=== PATIENT | female | born 1960 | race Caucasian/White ===

== ENCOUNTER → 2019-09-10 | Day surgery (SDC) | payer BC, OTHER ==
[2019-09-07 15:55] LABS: BASOPHILS # (AUTO) 0.1 (0.0-0.1); BASOPHILS % 1.5 % (0.0-1.0); EOSINOPHILS # (AUTO) 0.5 (0.0-0.4); EOSINOPHILS % 5.5 % (0.0-6.0); HEMATOCRIT 43.8 % (34.2-44.1); HEMOGLOBIN 13.7 g/dL (12.0-16.0); LYMPHOCYTES # (AUTO) 2.6 (1.0-3.2); LYMPHOCYTES % 32.2 % (18.0-39.1); MEAN CORPUSCULAR HEMOGLOBIN 28.3 pg (28-32); MEAN CORPUSCULAR HGB CONC 31.3 g/dL (31-35); MEAN CORPUSCULAR VOLUME 90.5 fL (81-99); MONOCYTES # (AUTO) 0.5 (0.2-0.8); MONOCYTES % 5.8 % (4.4-11.3); NEUTROPHILS # (AUTO) 4.5 (2.1-6.9); NEUTROPHILS % 54.8 % (38.7-80.0); PLATELET COUNT 291 x10e3/uL (140-360); RED BLOOD COUNT 4.84 x10e6/uL (3.6-5.1); RED CELL DISTRIBUTION WIDTH 12.9 % (11.7-14.4)
[2019-09-07 16:15] LABS: ANION GAP 12.7 mmol/L (8-16); BLOOD UREA NITROGEN 18 mg/dL (7-26); BUN/CREATININE RATIO 20 (6-25); CALCIUM 9.8 mg/dL (8.4-10.2); CARBON DIOXIDE 26 mmol/L (22-29); CHLORIDE 106 mmol/L (98-107); CREATININE, SERUM 0.88 mg/dL (0.57-1.11); EST GLOMERULAR FILTRATION RATE > 60 ML/MIN (60-); GLUCOSE 81 mg/dL (74-118); POTASSIUM 3.7 mmol/L (3.5-5.1); SODIUM 141 mmol/L (136-145)
--- NOTE | 2019-09-08 09:37 | Diagnostic Imaging Report ---
EXAMINATION: CHEST 2 VIEWS INDICATION: Pre-operative COMPARISON: None FINDINGS: LINES/TUBES:None LUNGS:The lungs are well-inflated. No focal consolidation or pulmonary edema. PLEURA:No pleural effusion or pneumothorax. MEDIASTINUM:The cardiomediastinal silhouette appears normal in size and shape. BONES/SOFT TISSUES:No acute osseous injury. ABDOMEN:No free air under the diaphragm. IMPRESSION: No focal pneumonia or pulmonary edema. Signed by: Leah Sargent MD on 09/08/2019 9:26 AM
[~2019-09-10] MED LIST: ACETAMINOPHEN 1000 MG/100 ML IV ONE; ARMOUR THYROID60 MG PO; BUPIVACAINE HCL 0.5% INJ 30 ML VIAL INJ ONE; CEFAZOLIN SOD 1 GM/NS 50ML 100 ML IV ONE; DEXAMETHASONE SOD PHOS INJ 4 MG/ML VIAL ONE; FENTANYL CITRATE/PF 100MCG/2 ML INJ ONE; HYDROMORPHONE 1MG/1ML INJ ONE; KETOROLAC TROMETHAMINE 30 MG/ML VIAL ONE; LIDOCAINE HCL 2% LOCAL INJ 5 ML SDV VIAL INJ ONE; MEPERIDINE HCL INJ 25 MG/ML VIAL ONE; MIDAZOLAM HCL 2 MG/2 ML VIAL ONE; MULTIVITAMINS1 EAC7 PO; NEOSTIGMINE 1 MG/ML 10ML VIAL ONE; ONDANSETRON HCL INJ 2MG/ML 2ML 2 MG/ML VIAL ONE; PROBIOTIC & AC1 EACH PO; PROPOFOL IV EMULSION 10 MG/ML 20 ML VIAL ONE; SEVOFLURANE INHAL SOLN 250 ML PEN BTL ONE
--- OUTSIDE RECORDS SUMMARY | 2019-09-10 08:55 | XMS REPORT | Clinical Summary ---
Author Author [facility] Address Unknown Phone Unavailable Care Team Providers Care Instrumentation Manager Name Role Phone PCP Unavailable Allergies No Known Allergies Medications End Date Status Medication Sig Dispensed Refills Start Date Active pharmacy compounding by 0 accessory Misc Miscellaneous route Biest 50:50 2.5 mg / Testosterone 1mg Apply 1 ml topically every day # 30ml . Active progesterone Take 100 mg 0 capsule/cream by mouth (compounded) nightly. Active thyroid, pork, 60 mg Tab Take 60 mg by 0 mouth daily. Active Problems Problem Noted Date Varicose vein of leg Thyroid disease HNP (herniated nucleus pulposus), lumba r Overview: l-4,l-5 Encounters Care Team Description Date Type Specialty Ami Thao MD Varicose veins of lower extremity, unspe cified laterality, unspecified whether complicated; Thyroid disease; HNP (herniated nucleus pulposus), lumbar 01/05/2019 Abstract Family Medicine after 09/09/2018 Family History Relation Name Status Comments Father Alive Mother Alive Social History Date Tobacco Use Types Packs/Day Years Used Never Smoker Smokeless Tobacco: Never Used Alcohol Use Drinks/Week oz/Week Comments Yes occasionally Sex Assigned at Date Recorded Not on file Industry Job Start Date Occupation Not on file Not on file Not on file Travel End Travel History Travel Start No recent travel history available. Last Filed Vital Signs Not on file Plan of Treatment Not on file Results Not on fileafter 09/09/2018
--- OUTSIDE RECORDS SUMMARY | 2019-09-10 08:55 | XMS REPORT ---
Author Author [facility] Organization [facility] Address [address] [place] [id number] Phone Unavailable Care Team Providers Care Wood Sash And Frame Carpenter Name Role Phone LAURYN NAIK Attphys Unavailable Problems This patient has no known problems. Allergies, Adverse Reactions, Alerts This patient has no known allergies or adverse reactions. Medications This patient has no known medications. Procedures This patient has no known procedures. Results Test Description Test Time Test Comments Results Result Comments Source CHEST 2 VIEWS 2019-09-08 09:26:00 [facility] [address] [place], [place] [address] Patient Name: SALAZAR FARFAN MR #: [id number] : 1960 Age/Sex: 59/F Req #: [id number] Adm Physician: Ordered by: LAURYN NAIK DPM Report #: [id number] Location: OR Room/Bed: Procedure: [id number] DX/CHEST 2 VIEWS Exam Date: 09/07/19 Exam Time: 1538 REPORT STATUS: Signed EXAMINATION: CHEST 2 VIEWS INDICATION: Pre-operative COMPARISON: None FINDINGS: LINES/TUBES:None LUNGS:The lungs are well-inflated. No focal consolidation or pulmonary edema. PLEURA:No pleural effusion or pneumothorax. MEDIAS TINUM:The cardiomediastinal silhouette appears normal in size and shape. BONES/SOFT TISSUES:No acute osseous injury. ABDOMEN:No free air under the diaphragm. IMPRESSION: No focal pneumonia or pulmonary edema. Signed by: Jen Stringer MD on 09/08/2019 9:26 AM Dictated By: JEN STRINGER MD 5 Transcribed By: SADAF on 09/08/19925 COPY TO: LAURYN NAIK DPM
[2019-09-10 14:50] VITALS: BP 130/84
--- NOTE | 2019-09-23 14:46 | Operative Report ---
DATE OF PROCEDURE: 09/10/2019 SURGEON: Mehul Soliz DPM ROOM NUMBER: [facility]. PREOPERATIVE DIAGNOSES: 1. Hallux abductovalgus deformity of the right foot. 2. Rigidly contracted hammertoe, 2nd and 3rd digits of the right foot. 3. Dislocation and plantar flexion, 2nd metatarsal at the metatarsophalangeal joint, right foot. 4. Plantar flexed 2nd metatarsal, right foot. POSTOPERATIVE DIAGNOSES: 1. Hallux abductovalgus deformity of the right foot. 2. Rigidly contracted hammertoe, 2nd and 3rd digits of the right foot. 3. Dislocation and plantar flexion, 2nd metatarsal at the metatarsophalangeal joint, right foot. 4. Plantar flexed 2nd metatarsal, right foot. PROCEDURES LIST: 1. Modified Sánchez bunionectomy, right foot. 2. Arthrodesis, 2nd and 3rd digits of the right foot with implant and pinning. 3. Open reduction with internal fixation, 2nd metatarsophalangeal joint dislocation. 4. Elevating osteotomy, 2nd metatarsal, right foot. ANESTHESIA: General endotracheal. HEMOSTASIS: A right thigh tourniquet at 350 mmHg. PROCEDURE IN DETAIL: The patient was taken to the operating room in a mildly sedated state and placed on the operating table in supine position. Following induction of general anesthetic, the right lower extremity was elevated to 60 degrees to exsanguinate before inflating the pneumatic thigh tourniquet to 350 mmHg to create hemostasis. Right lower extremity was placed on the operating table prior to performing following procedure. Procedure #1: Modified Sánchez bunionectomy. An approximate 6 cm dorsal linear incision was made across the dorsal medial aspect of 1st metatarsophalangeal joint of the right foot. The incision was deepened via sharp and blunt dissection down to the level of dorsal capsular structure. Care was taken to identify and retract all vital structures encountered. The head of the 1st metatarsal delivered in surgical site and remodeled utilizing oscillating saw and rotary bur. The area was irrigated with copious amounts of sterile saline solution. A release of the contracture of the adductor hallucis muscle was performed with a release also of the fibular sesamoid. The area was then irrigated, closed with 3-0 Vicryl and 4-0 nylon. Attention was then directed to the 2nd and 3rd digits of the right foot. It was noted that there was a dislocation of the 2nd digit over the 2nd metatarsal. Linear longitudinal incisions were made overlying the head of the proximal phalanx of the 2nd and 3rd digits and both were dissected free. Two-step implant was inserted with 0.045 K-wires through the canal. The pinning was extended into the 3rd metatarsal from the 3rd digital bone. Separate procedure was performed on the 2nd metatarsal in order to allow for elevating the 2nd metatarsal and accomplishing the ORIF of the joint. A separate linear longitudinal incision was made overlying the 2nd metatarsal bone itself and a through and through Keegan-type osteotomy was placed through the head of the 2nd metatarsal. This was subluxed proximally and pinned with 2.4 cortical bone screw. The remaining bone was remodeled. The area was irrigated with copious amounts of sterile saline solution. At this point, ORIF of the 2nd metatarsophalangeal joint was performed with a release of all surrounding and constricting soft tissue contractures and scarring. A distraction dorsally and distally of the 2nd digit was performed allowing for a relocation of the 2nd digit onto the head of the proximal phalanx, which should then newly shortened and that was then pinned in the appropriate position utilizing the 0.045 K-wire, which extended through the 2nd digit implant. A second K-wire was also used to stabilize and further accomplish the ORIF of the 2nd metatarsophalangeal joint. The area was all irrigated with copious amounts of sterile saline solution. Deep closure with 3-0 Vicryl, subcutaneous closure with 4-0 Vicryl, and skin closure with 4-0 nylon. The areas of surgery were then blocked with 0.5 Marcaine and Decadron [place]. Human tissue allograft was used to facilitate healing. After the appropriate blockade, released the pneumatic thigh tourniquet showed a normal hyperemic flush to all digits of the right foot and the patient left the operating room, vital signs stable in apparent satisfactory condition and tolerated both anesthetic and procedure very well. KYLEIGH Carreon/ALFREDO /[id number]
== END | disposition home or self-care (01) ==
LOC: OR 08:52
PROVIDERS: ATTEND Podiatrist Foot Surgery
DX: M20.11 Hallux valgus (acquired), right foot (principal); M20.41 Other hammer toe(s) (acquired), right foot; S93.124A Dislocation of metatarsophalangeal joint of right lesser toe(s), initial encounter; X58.XXXA Exposure to other specified factors, initial encounter; M21.271 Flexion deformity, right ankle and toes; M26.609 Unspecified temporomandibular joint disorder, unspecified side; Z01.810 Encounter for preprocedural cardiovascular examination; Z01.812 Encounter for preprocedural laboratory examination; Z01.818 Encounter for other preprocedural examination; Z11.59 Encounter for screening for other viral diseases
CPT/HCPCS: 28285 ×2; 28292; 28308; 28485; 36415; 71046; 80048; 85025; 87635; 93005; C1713 ×5; J0131; J0690; J1100; J1170; J1885; J2001; J2175; J2250; J2405; J2704; J2710; J3010; Q4100